=== PATIENT | male | born 1935 | race American Indian/Alaskan Native ===

== ENCOUNTER 2020-06-01 12:45 | Observation (INO) | payer MEDICARE ==
[2020-06-01] MEDS ORDERED: LACTATED RINGERS 1,000 ML IV SCH (13:00)
[2020-06-01] MEDS ORDERED: LACTATED RINGERS 1,000 ML ONE (13:15)
[2020-06-01] MEDS ORDERED: HYDROmorphone 1 MG/1 ML INJ IV PRN (13:25)
[2020-06-01] MEDS ORDERED: ONDANSETRON 4 MG/2 ML INJ IV PRN ×2 (13:25→17:00)
--- NOTE | 2020-06-01 13:26 | Anesthesia Day of Surgery ---
Anesthesia Day of Surgery - Day of Surgery Patient Examined: Yes Patient H&P Reviewed: Yes Patient is NPO: Yes
--- NOTE | 2020-06-01 13:27 | Anesthesia Consultation ---
Anesthesia Consult and Med Hx Date of service: 06/01/20 - Airway Anesthetic Teeth Evaluation: Poor (Missing) ROM Head & Neck: Adequate Mental/Hyoid Distance: Adequate Mallampati Class: Class II Intubation Access Assessment: Good - Pre-Operative Health Status ASA Pre-Surgery Classification: ASA2 Proposed Anesthetic Plan: General - Pulmonary Hx Smoking: Yes Hx Asthma: No Hx Respiratory Symptoms: No (Uses walker and says he can walk as far as he wants) COPD: No Hx Pneumonia: No Hx Sleep Apnea: No (ELIZA PRE SCREEN HIGH RISK.) - Cardiovascular System Hx Hypertension: Yes Hx Heart Attack/AMI: No Hx Pacemaker: No Hx Internal Defibrillator: No Hx Heart Murmur: No - Central Nervous System Hx Seizures: No CVA: Yes (TIAs 5 years ago) - Gastrointestinal Hx Gastroesophageal Reflux Disease: No - Endocrine Hx End Stage Renal Disease: No Hx Cirrhosis: No Hx Liver Disease: No - Hematic Hx Anemia: No Hx Sickle Cell Disease: No - Other Systems Hx Cancer: Yes Hx Obesity: Yes
[2020-06-01] MEDS ORDERED: ceFAZolin/STERILE WATER 2 GM/20 ML SYRINGE IV NR (14:27)
[2020-06-01] MEDS ORDERED: GLYCOPYRROLATE 0.4 MG/2 ML INJ ONE (14:47)
[2020-06-01] MEDS ORDERED: SUCCINYLCHOLINE CHLORIDE 200 MG/10 ML INJ MDV ONE (14:47)
[2020-06-01] MEDS ORDERED: dexAMETHasone 20 MG/5 ML VIAL ONE (14:47)
[2020-06-01] MEDS ORDERED: LIDOCAINE MPF (2%) 20 MG/1 ML VIAL 5 ML ONE (14:47)
[2020-06-01] MEDS ORDERED: ONDANSETRON 4 MG/2 ML INJ ONE (14:47)
[2020-06-01] MEDS ORDERED: propofoL 200 MG/20 ML VIAL IV ONE (14:48)
[2020-06-01] MEDS ORDERED: fentaNYL 100 MCG/2 ML INJ ONE (14:48)
--- NOTE | 2020-06-01 15:13 | Post Operative Note ---
Date of procedure: 06/01/20 Pre-op diagnosis: bladder cancer prev prostate Post-op diagnosis: same Findings: as above Anesthesia: GETA Surgeon: CHRISTIANO PRICE Estimated blood loss: 50-100ml Pathology: list (bladder) Specimen disposition: to lab Condition: stable Disposition: PACU
[2020-06-01] MEDS ORDERED: METHYLENE BLUE 50 MG/10 ML AMP ONE (15:24)
[2020-06-01] MEDS ORDERED: SODIUM CHLORIDE 0.9% IRRIG SOLN 2000 ML IR ONE (16:14)
[2020-06-01] MEDS ORDERED: SODIUM CHLORIDE 0.9% 1000 ML 1,000 ML ONE (16:23)
[2020-06-01] MEDS: HYDROmorphone 1 MG/1 ML INJ IV PRN ×2 (16:35→20:24)
--- NOTE | 2020-06-01 16:44 | Fluoroscopy Report ---
INTRAOPERATIVE FLUOROSCOPY: RETROGRADE UROGRAPHY INDICATION: BLADDER CANCER. TECHNIQUE: Intraoperative spot images were obtained during the procedure. FINDINGS: The opacified left renal collecting system and ureter are unremarkable as visualized. There is mild d ilatation of the distal third of the right ureter with filling defects along the proximal third of th e right ureter that likely represent air bubbles. The opacified right renal collecting system is unre markable. Please see the procedure report for further details. Fluoroscopy Time: 1.3 minutes. Fluoroscopy Images: 8. Signer Name: Ganesh Pretty MD Signed: 06/01/2020 4:40 PM Workstation Name: [id number]
[2020-06-01 16:56] LABS: Basophils % (Auto) 0.8 % (0.0-1.8); Eosinophils # (Auto) 0.1 K/mm3 (0.0-0.4); Eosinophils % (Auto) 2.5 % (0.0-4.3); Hematocrit 37.6 % (35.5-45.6); Hemoglobin 13.2 gm/dl (11.8-15.2); Lymphocytes # (Auto) 1.3 K/mm3 (1.2-5.4); Lymphocytes % (Auto) 24.1 % (13.4-35.0); Mean Corpuscular HGB Conc 35 % (32-34); Mean Corpuscular Volume 85 fl (84-94); Monocytes # (Auto) 0.2 K/mm3 (0.0-0.8); Monocytes % (Auto) 3.7 % (0.0-7.3); Platelet Count 283 K/mm3 (140-440); Red Blood Count 4.45 M/mm3 (3.65-5.03); Red Cell Distribution Width 14.9 % (13.2-15.2)
--- NOTE | 2020-06-01 16:59 | Operative Report ---
PREOPERATIVE DIAGNOSES: Large bladder tumor, history of prostate cancer, multiple comorbidities. POSTOPERATIVE DIAGNOSES: Large bladder tumor, history of prostate cancer, multiple comorbidities. PROCEDURE: Cystoscopy, resection of large bladder tumor and retrograde with right double-J stent. SURGEON: Shree Sellers M.D. ANESTHESIA: General. FINDINGS: This is a gentleman who was supposed to see me with hematuria about 8-9 months ago. Because of COVID, he never showed up. He started bleeding again recently. Cystoscopy showed a bladder tumor, which is large, right side of the bladder, now presents for treatment. DESCRIPTION OF PROCEDURE: The patient was brought to the operating room and placed on the operating room table. Following induction of anesthesia, placed in lithotomy position, prepped and draped in usual sterile fashion. Cystourethroscopy showed a tumor encompassing almost the entire right side of the bladder, right posterior wall. The orifice was visible. The tumor was resected down to capsular fibers deep into the muscle. It clearly looked invasive. There was no way to resect this entire tumor. We wanted to do palliative and stage this since he is just about 86 years old. At this point, once most of the tumor was removed, you could see that it is still rigid and it is deep. We did a retrograde, showed dilatation of the right side and very narrowing at the intramural ureter. With manipulation, we got a stent in and there was hydroureter and we were able to place a 6-Nauruan double J in the right ureter. The patient tolerated the procedure well and brought to recovery in stable condition. Final pathology pending. A 3-way catheter draining clear. JOB# [id number] IFEOMA/WIN
[2020-06-01] MEDS ORDERED: ACETAMINOPHEN 325 MG TAB PO PRN (17:00)
[2020-06-01] MEDS ORDERED: HYDROcodone/ACETAMINOPHEN 5-325 MG TAB PO PRN (17:00)
[2020-06-01] MEDS ORDERED: D5W/0.45% NACL/KCL 20 MEQ 20 MEQ/1,000 ML BAG IV SCH (17:00)
[2020-06-01 17:09] LABS: BUN/Creatinine Ratio 9; Blood Urea Nitrogen 11 mg/dL (9-20); Hemolysis Index 7
--- NOTE | 2020-06-01 17:40 | Post Anesthesia Evaluation ---
- Post Anesthesia Evaluation Patient Participated: Yes Airway Patent: Yes Stable Respiratory Function: Yes Nausea/Vomiting: No Temp > 96.8F: Yes Pain Manageable: Yes Adequeate Hydration: Yes Anesthesia Complications: No Block Receding Appropriately: Not Applicable Patient on Ventilator: No
--- NOTE | 2020-06-01 18:42 | Cat Scan Report ---
CT ABDOMEN AND PELVIS WITHOUT CONTRAST INDICATION / CLINICAL INFORMATION: Bladder cancer. TECHNIQUE: Axial CT images were obtained through the abdomen and pelvis without IV contrast. All CT scans at this location are performed using CT dose reduction for ALARA by means of automated exposure control. COMPARISON: None available. FINDINGS: LOWER CHEST: There is elevation of the left hemidiaphragm with airspace consolidation of the left low er lobe. There is right basilar atelectasis. LIVER: Hepatic steatosis. GALLBLADDER/BILIARY TREE: Unremarkable PANCREAS: Unremarkable SPLEEN: Unremarkable ADRENALS: Unremarkable KIDNEYS / URETER: Right ureteral stent extends from the right renal pelvis to the bladder. No residua l hydronephrosis. Left kidney and ureter are unremarkable. URINARY BLADDER: There is extensive, irregular wall thickening of the bladder, which is decompressed by Bird catheter. REPRODUCTIVE ORGANS: Unremarkable STOMACH / SMALL BOWEL: Stomach and small bowel are normal in caliber. No evidence of bowel inflammati on. COLON: The colon is unremarkable. LYMPH NODES: Bilateral pelvic sidewall lymph nodes, measuring 1.1 cm on the right (series 2 image 166 ) and 1.2 cm on the left (series 2 image 157). VASCULATURE: Moderate atherosclerotic calcification without acute abnormality. OTHER: No free air, free fluid, or focal fluid collection is identified. SKELETAL SYSTEM: Scattered degenerative changes of the spine. No acute or suspicious osseous findings . IMPRESSION: 1. Marked bladder wall irregularity, compatible with known bladder malignancy. Mildly enlarged bilate ral pelvic sidewall lymph nodes are suspicious for regional metastatic disease. 2. Right ureteral stent is present without significant residual hydronephrosis. 3. Elevated left hemidiaphragm with airspace consolidation of the left lower lobe, most likely reflec ting passive atelectasis. Recommend correlation to exclude pneumonia. 4. Other chronic, incidental findings as above. Signer Name: Jorge Tidwell MD Signed: 06/01/2020 6:37 PM Workstation Name: [id number]
[2020-06-01] MEDS: SODIUM CHLORIDE 0.9% IRRIG SOLN 2000 ML IR SCH ×2 (20:32→23:01)
[2020-06-01] MEDS ORDERED: ZOLPIDEM 5 MG TAB PO PRN (21:00)
[2020-06-01] MEDS: ceFAZolin/NS 1 GM/50 ML 1 GM/50 ML BAG IV SCH (23:01)
[2020-06-02] MEDS: SODIUM CHLORIDE 0.9% IRRIG SOLN 2000 ML IR SCH ×2 (00:56→08:26)
--- NOTE | 2020-06-02 05:31 | Consultation ---
History of Present Illness - Reason for Consult Consult date: 06/01/20 Medical management Requesting physician: CHRISTIANO PRICE - History of Present Illness 85-year-old s/p bladder tumor removal being admitted from PACU for 1 day observation. Post op patient doing well. Patient also has history of prostate cancer. No shortness of breath. No chest pain. No other complaints. Past History Past Medical History: cancer (Bladder and prostate) Past Surgical History: Other (Bladder surgery with tumor removal follow-up with some hematuria) Social history: lives with family, full code Family history: hypertension Medications and Allergies Allergies Allergy/AdvReac Type Severity Reaction Status Date / Time No Known Allergies Allergy Verified 05/30/20 12:11 Home Medications Medication Instructions Recorded Confirmed Last Taken Type Boost 1 bottle PO DAILY 05/30/20 05/30/20 Unknown History Sulfamethoxazole-Tmp Ds Tablet 1 tab PO Q12HR 05/30/20 06/01/20 06/01/20 09:00 History Active Meds: Active Medications Acetaminophen (Acetaminophen 325 Mg Tab) 650 mg PO Q4H PRN PRN Reason: Pain MILD(1-3)/Fever >100.5/FLORES Hydrocodone Bitart/Acetaminophen (Hydrocodone/Acetaminophen 5-325 Mg Tab) 2 each PO Q6H PRN PRN Reason: Pain, Moderate (4-6) Last Admin: 06/02/20 00:51 Dose: 2 each Documented by: Lactated Ringer's (Lactated Ringers) 1,000 mls @ 75 mls/hr IV DIRECT EDGAR Last Admin: 06/01/20 13:30 Dose: 75 mls/hr Documented by: Potassium Chloride/Dextrose/Sod Cl (D5w/0.45% Nacl/Kcl 20 Meq) 20 meq in 1,000 mls @ 100 mls/hr IV DIRECT EDGAR Last Admin: 06/01/20 20:25 Dose: 100 mls/hr Documented by: Cefazolin Sodium (Ancef/Ns 1 Gm/50 Ml) 1 gm in 50 mls @ 100 mls/hr IV Q8H EDGAR; Protocol Stop: 06/02/20 23:29 Last Admin: 06/01/20 23:01 Dose: 100 mls/hr Documented by: Ondansetron HCl (Ondansetron 4 Mg/2 Ml Inj) 4 mg IV Q8H PRN PRN Reason: Nausea And Vomiting Pantoprazole Sodium (Pantoprazole 40 Mg Inj) 40 mg IV QDAY EDGAR Sodium Chloride (Sodium Chloride 0.9% Irrig Soln 2000 Ml) 2,000 ml IR DIRECT EDGAR Last Admin: 06/02/20 00:56 Dose: 2,000 ml Documented by: Zolpidem Tartrate (Zolpidem 5 Mg Tab) 5 mg PO QHS PRN PRN Reason: Sleep Review of Systems All systems: negative Exam - Constitutional Vitals: Temp Pulse Resp BP Pulse Ox 97.3 F L 82 17 189/99 97 06/02/20 02:44 06/02/20 02:44 06/02/20 02:44 06/02/20 02:44 06/02/20 02:44 General appearance: Present: no acute distress, well-nourished - EENT Eyes: Present: PERRL ENT: hearing intact, clear oral mucosa - Neck Neck: Present: supple, normal ROM - Respiratory Respiratory effort: normal Respiratory: bilateral: CTA - Cardiovascular Heart rate: 78 Rhythm: regular Heart Sounds: Present: S1 & S2. Absent: rub, click - Extremities Extremities: pulses symmetrical, No edema Peripheral Pulses: within normal limits - Abdominal General gastrointestinal: Present: soft, non-tender, non-distended, normal bowel sounds Male genitourinary: Present: normal - Integumentary Integumentary: Present: clear, warm, dry - Musculoskeletal Musculoskeletal: gait normal, strength equal bilaterally - Psychiatric Psychiatric: appropriate mood/affect, intact judgment & insight - Neurologic Neurologic: CNII-XII intact, moves all extremities Results - Labs CBC & Chem 7: 06/01/20 16:52 06/01/20 16:52 Labs: Abnormal lab results 06/01/20 06/01/20 Range/Units 16:52 16:52 MCHC 35 H (32-34) % Sodium 135 L (137-145) mmol/L Glucose 118 H (75-100) mg/dL Assessment and Plan - Patient Problems (1) Bladder cancer Current Visit: Yes Status: Acute Qualifiers: Bladder location: anterior wall Qualified Code(s): 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
[2020-06-02] MEDS: ceFAZolin/NS 1 GM/50 ML 1 GM/50 ML BAG IV SCH (06:31)
[2020-06-02] MEDS ORDERED: hydrALAZINE 20 MG/1 ML INJ IV PRN (07:49)
--- NOTE | 2020-06-02 07:52 | Progress Note ---
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 I sent amlodipine prescription to his pharmacy. Advised to have the patient follow-up with his primary care physician, having surgery yesterday may contribute to increased increase blood pressure temporarily. Also advised the patient to check his blood pressure at home. History Interval history: Patient was seen and evaluated this morning Patient does not have any complaints His blood pressure is high Hospitalist Physical - Physical exam Narrative exam: Not in cardiopulmonary distress. The patient appeared well nourished and normally developed. Vital signs as documented. Head exam is unremarkable. No scleral icterus . Neck is without jugular venous distension, thyromegaly, or carotid bruits. Lungs are clear to auscultation. Cardiac exam reveals regular rate and Rhythm. Abdominal exam reveals normal bowel sounds, nontender, no organomegaly. Extremities are nonedematous and both femoral and pedal pulses are normal. BUSINESS SYSTEMS LEAD: Alert and oriented 3. No focal weakness. - Constitutional Vitals: Temp Pulse Resp BP Pulse Ox 97.3 F L 82 17 189/99 97 06/02/20 02:44 06/02/20 02:44 06/02/20 02:44 06/02/20 02:44 06/02/20 02:44 General appearance: Present: no acute distress, well-nourished Results - Labs CBC & Chem 7: 06/01/20 16:52 06/01/20 16:52 Labs: Laboratory Last Values WBC 5.4 K/mm3 (4.5-11.0) 06/01/20 16:52 RBC 4.45 M/mm3 (3.65-5.03) 06/01/20 16:52 Hgb 13.2 gm/dl (11.8-15.2) 06/01/20 16:52 Hct 37.6 % (35.5-45.6) 06/01/20 16:52 MCV 85 fl (84-94) 06/01/20 16:52 MCH 30 pg (28-32) 06/01/20 16:52 MCHC 35 % (32-34) H 06/01/20 16:52 RDW 14.9 % (13.2-15.2) 06/01/20 16:52 Plt Count 283 K/mm3 (140-440) 06/01/20 16:52 Lymph % (Auto) 24.1 % (13.4-35.0) 06/01/20 16:52 Coffey % (Auto) 3.7 % (0.0-7.3) 06/01/20 16:52 Eos % (Auto) 2.5 % (0.0-4.3) 06/01/20 16:52 Baso % (Auto) 0.8 % (0.0-1.8) 06/01/20 16:52 Lymph # (Auto) 1.3 K/mm3 (1.2-5.4) 06/01/20 16:52 Coffey # (Auto) 0.2 K/mm3 (0.0-0.8) 06/01/20 16:52 Eos # (Auto) 0.1 K/mm3 (0.0-0.4) 06/01/20 16:52 Baso # (Auto) 0.0 K/mm3 (0.0-0.1) 06/01/20 16:52 Seg Neutrophils % 68.9 % (40.0-70.0) 06/01/20 16:52 Seg Neutrophils # 3.7 K/mm3 (1.8-7.7) 06/01/20 16:52 Sodium 135 mmol/L (137-145) L 06/01/20 16:52 Potassium 4.4 mmol/L (3.6-5.0) 06/01/20 16:52 Chloride 102.7 mmol/L (98-107) 06/01/20 16:52 Carbon Dioxide 27 mmol/L (22-30) 06/01/20 16:52 Anion Gap 10 mmol/L 06/01/20 16:52 BUN 11 mg/dL (9-20) 06/01/20 16:52 Creatinine 1.2 mg/dL (0.8-1.3) 06/01/20 16:52 Estimated GFR > 60 ml/min 06/01/20 16:52 BUN/Creatinine Ratio 9 % 06/01/20 16:52 Glucose 118 mg/dL (75-100) H 06/01/20 16:52 Calcium 9.0 mg/dL (8.4-10.2) 06/01/20 16:52 Coronavirus (PCR) Negative (Negative) 05/31/20 Unknown Bird/IV: Voiding Method Indwelling Catheter Active Medications - Current Medications Current Medications: Generic Name Dose Route Start Last Admin Trade Name Freq PRN Reason Stop Dose Admin Acetaminophen 650 mg 06/01/20 17:00 Acetaminophen 325 Mg Tab PO Q4H PRN Pain MILD(1-3)/Fever >100.5/FLORES Hydrocodone Bitart/Acetaminophen 2 each 06/01/20 17:00 06/02/20 00:51 Hydrocodone/Acetaminophen 5-325 Mg Tab PO 2 each Q6H PRN Administration Pain, Moderate (4-6) Lactated Ringer's 1,000 mls @ 75 mls/hr 06/01/20 13:00 06/01/20 13:30 Lactated Ringers IV 75 mls/hr DIRECT EDGAR Administration Potassium Chloride/Dextrose/Sod Cl 20 meq in 1,000 mls @ 100 mls/hr 06/01/20 17:00 06/01/20 20:25 D5w/0.45% Nacl/Kcl 20 Meq IV 100 mls/hr DIRECT EDGAR Administration Cefazolin Sodium 1 gm in 50 mls @ 100 mls/hr 06/01/20 23:00 06/02/20 06:31 Ancef/Ns 1 Gm/50 Ml IV 06/02/20 23:29 100 mls/hr Q8H EDGAR Administration Protocol Ondansetron HCl 4 mg 06/01/20 17:00 Ondansetron 4 Mg/2 Ml Inj IV Q8H PRN Nausea And Vomiting Pantoprazole Sodium 40 mg 06/02/20 08:00 06/02/20 06:38 Pantoprazole 40 Mg Inj IV 40 mg QDAY EDGAR Administration Sodium Chloride 2,000 ml 06/01/20 17:00 06/02/20 00:56 Sodium Chloride 0.9% Irrig Soln 2000 Ml IR 2,000 ml DIRECT EDGAR Administration Zolpidem Tartrate 5 mg 06/01/20 21:00 Zolpidem 5 Mg Tab PO QHS PRN Sleep
[2020-06-02] MEDS ORDERED: PANTOPRAZOLE 40 MG INJ IV SCH (08:00)
[2020-06-02] MEDS ORDERED: amLODIPine 10 MG TAB PO SCH (08:00)
[2020-06-02 08:51] VITALS: BP 170/86
--- NOTE | 2020-06-02 09:01 | Discharge Summary ---
Short Stay Discharge Plan Activity: other Weight Bearing Status: Partial Weight Bearing Diet: regular, low fat, low cholesterol, low salt Special Instructions: other (teach campo care ) Follow up with: PRIMARY CARE, [Primary Care Provider] - 7 Days CHRISTIANO PRICE MD [Staff Physician] - 7 Days
--- NOTE | 2020-06-02 09:04 | Progress Note ---
Assessment and Plan edema decreased looksbetter campo out pt insisted Subjective Date of service: 06/02/20 Principal diagnosis: hematuria Objective - Constitutional Vitals: Vital Signs - 12hr 06/01/20 06/02/20 06/02/20 23:15 02:44 08:06 Temperature 97.3 F L 98.4 F Pulse Rate 82 85 Respiratory 17 18 Rate Blood Pressure 170/86 Blood Pressure 189/99 [Right] O2 Sat by Pulse 95 97 100 Oximetry General appearance: Present: no acute distress - Respiratory Respiratory effort: normal Extremities: No edema - Gastrointestinal General gastrointestinal: Present: non-tender - Genitourinary Male genitourinary: penile edema - Labs CBC & Chem 7: 06/01/20 16:52 06/01/20 16:52 Labs: Abnormal lab results 06/01/20 06/01/20 Range/Units 16:52 16:52 MCHC 35 H (32-34) % Sodium 135 L (137-145) mmol/L Glucose 118 H (75-100) mg/dL Medications & Allergies - Medications Allergies/Adverse Reactions: Allergies No Known Allergies Allergy (Verified 05/30/20 12:11) Home Medications: Home Medications Medication Instructions Recorded Confirmed Last Taken Type Boost 1 bottle PO DAILY 05/30/20 05/30/20 Unknown History Sulfamethoxazole-Tmp Ds Tablet 1 tab PO Q12HR 05/30/20 06/01/20 06/01/20 09:00 History Active Medications: Generic Name Dose Route Start Last Admin Trade Name Freq PRN Reason Stop Dose Admin Acetaminophen 650 mg 06/01/20 17:00 Acetaminophen 325 Mg Tab PO Q4H PRN Pain MILD(1-3)/Fever >100.5/FLORES Hydrocodone Bitart/Acetaminophen 2 each 06/01/20 17:00 06/02/20 00:51 Hydrocodone/Acetaminophen 5-325 Mg Tab PO 2 each Q6H PRN Administration Pain, Moderate (4-6) Amlodipine Besylate 10 mg 06/02/20 08:00 Amlodipine 10 Mg Tab PO QDAY EDGAR Hydralazine HCl 10 mg 06/02/20 07:49 Hydralazine 20 Mg/1 Ml Inj IV Q4HR PRN Hypertension Lactated Ringer's 1,000 mls @ 75 mls/hr 06/01/20 13:00 06/01/20 13:30 Lactated Ringers IV 75 mls/hr DIRECT EDGAR Administration Potassium Chloride/Dextrose/Sod Cl 20 meq in 1,000 mls @ 100 mls/hr 06/01/20 17:00 06/01/20 20:25 D5w/0.45% Nacl/Kcl 20 Meq IV 100 mls/hr DIRECT EDGAR Administration Cefazolin Sodium 1 gm in 50 mls @ 100 mls/hr 06/01/20 23:00 06/02/20 06:31 Ancef/Ns 1 Gm/50 Ml IV 06/02/20 23:29 100 mls/hr Q8H EDGAR Administration Protocol Ondansetron HCl 4 mg 06/01/20 17:00 Ondansetron 4 Mg/2 Ml Inj IV Q8H PRN Nausea And Vomiting Pantoprazole Sodium 40 mg 06/02/20 08:00 06/02/20 06:38 Pantoprazole 40 Mg Inj IV 40 mg QDAY EDGAR Administration Sodium Chloride 2,000 ml 06/01/20 17:00 06/02/20 08:26 Sodium Chloride 0.9% Irrig Soln 2000 Ml IR 2,000 ml DIRECT EDGAR Administration Zolpidem Tartrate 5 mg 06/01/20 21:00 Zolpidem 5 Mg Tab PO QHS PRN Sleep
--- NOTE | 2020-06-02 09:11 | Progress Note ---
Assessment and Plan keep jahaira last edit was wrong pt home with jahaira Subjective Date of service: 06/02/20 Principal diagnosis: hematuria Objective - Constitutional Vitals: Vital Signs - 12hr 06/01/20 06/02/20 06/02/20 23:15 02:44 08:06 Temperature 97.3 F L 98.4 F Pulse Rate 82 85 Respiratory 17 18 Rate Blood Pressure 170/86 Blood Pressure 189/99 [Right] O2 Sat by Pulse 95 97 100 Oximetry General appearance: Present: no acute distress - Labs CBC & Chem 7: 06/01/20 16:52 06/01/20 16:52 Labs: Abnormal lab results 06/01/20 06/01/20 Range/Units 16:52 16:52 MCHC 35 H (32-34) % Sodium 135 L (137-145) mmol/L Glucose 118 H (75-100) mg/dL Medications & Allergies - Medications Allergies/Adverse Reactions: Allergies No Known Allergies Allergy (Verified 05/30/20 12:11) Home Medications: Home Medications Medication Instructions Recorded Confirmed Last Taken Type Boost 1 bottle PO DAILY 05/30/20 05/30/20 Unknown History Sulfamethoxazole-Tmp Ds Tablet 1 tab PO Q12HR 05/30/20 06/01/20 06/01/20 09:00 History Active Medications: Generic Name Dose Route Start Last Admin Trade Name Freq PRN Reason Stop Dose Admin Acetaminophen 650 mg 06/01/20 17:00 Acetaminophen 325 Mg Tab PO Q4H PRN Pain MILD(1-3)/Fever >100.5/FLORES Hydrocodone Bitart/Acetaminophen 2 each 06/01/20 17:00 06/02/20 00:51 Hydrocodone/Acetaminophen 5-325 Mg Tab PO 2 each Q6H PRN Administration Pain, Moderate (4-6) Amlodipine Besylate 10 mg 06/02/20 08:00 Amlodipine 10 Mg Tab PO QDAY EDGAR Hydralazine HCl 10 mg 06/02/20 07:49 Hydralazine 20 Mg/1 Ml Inj IV Q4HR PRN Hypertension Lactated Ringer's 1,000 mls @ 75 mls/hr 06/01/20 13:00 06/01/20 13:30 Lactated Ringers IV 75 mls/hr DIRECT EDGAR Administration Potassium Chloride/Dextrose/Sod Cl 20 meq in 1,000 mls @ 100 mls/hr 06/01/20 17:00 06/01/20 20:25 D5w/0.45% Nacl/Kcl 20 Meq IV 100 mls/hr DIRECT EDGAR Administration Cefazolin Sodium 1 gm in 50 mls @ 100 mls/hr 06/01/20 23:00 06/02/20 06:31 Ancef/Ns 1 Gm/50 Ml IV 06/02/20 23:29 100 mls/hr Q8H EDGAR Administration Protocol Ondansetron HCl 4 mg 06/01/20 17:00 Ondansetron 4 Mg/2 Ml Inj IV Q8H PRN Nausea And Vomiting Pantoprazole Sodium 40 mg 06/02/20 08:00 06/02/20 06:38 Pantoprazole 40 Mg Inj IV 40 mg QDAY EDGAR Administration Sodium Chloride 2,000 ml 06/01/20 17:00 06/02/20 08:26 Sodium Chloride 0.9% Irrig Soln 2000 Ml IR 2,000 ml DIRECT EDGAR Administration Zolpidem Tartrate 5 mg 06/01/20 21:00 Zolpidem 5 Mg Tab PO QHS PRN Sleep
[2020-06-03] MEDS ORDERED: PANTOPRAZOLE 40 MG TAB PO SCH (07:30)
== END 2020-06-02 11:30 | disposition home or self-care (01) ==
LOC: OR 12:45 → 3A 16:17 → 3B 17:57
PROVIDERS: ADMIT Urology; ATTEND Urology
DX: C61 Malignant neoplasm of prostate (principal); Z20.822 Contact with and (suspected) exposure to COVID-19; C67.3 Malignant neoplasm of anterior wall of bladder; E87.1 Hypo-osmolality and hyponatremia; I10 Essential (primary) hypertension
CPT/HCPCS: 36415; 52235; 52332; 74176; 74420; 80048; 85025; 88307; 93005; 96361; 96365; 96366; 96375; 96376; A4217; C2617; C9113; G0378; J0330; J0690; J1100; J1170; J2405; J2704; J3010; J7030; J7120; Q9967; Q9968; U0003

== ENCOUNTER 2021-02-01 12:44 | Day surgery (SDC) | payer MEDICARE ==
[~2021-02-01 12:44] MED LIST: LACTATED RINGERS 1,000 ML IV SCH; WATER FOR IRRIG STERILE 1,500 ML BOTTLE IR ONE; WATER FOR IRRIG STERILE 2000 ML IR ONE
[2021-02-01] MEDS ORDERED: ceFAZolin/STERILE WATER 2 GM/20 ML SYRINGE IV NR (14:00)
[2021-02-01] MEDS ORDERED: ONDANSETRON 4 MG/2 ML INJ IV PRN (14:01)
[2021-02-01] MEDS ORDERED: HYDROmorphone 1 MG/1 ML INJ IV PRN (14:01)
[2021-02-01] MEDS ORDERED: HYDROcodone/ACETAMINOPHEN 5-325 MG TAB PO PRN (14:01)
--- NOTE | 2021-02-01 14:04 | Anesthesia Consultation ---
Anesthesia Consult and Med Hx Date of service: 02/01/21 - Airway Anesthetic Teeth Evaluation: Good ROM Head & Neck: Adequate Mental/Hyoid Distance: Adequate Mallampati Class: Class II Intubation Access Assessment: Probably Good - Pulmonary Exam CTA: Yes - Cardiac Exam Cardiac Exam: RRR - Pre-Operative Health Status ASA Pre-Surgery Classification: ASA3 Proposed Anesthetic Plan: General - Pulmonary Hx Smoking: Yes (quit many yrs ago) Hx Respiratory Symptoms: No (occasional cough) Hx Sleep Apnea: No (ELIZA PRE SCREEN HIGH RISK.) - Cardiovascular System Hx Hypertension: Yes Hx Heart Attack/AMI: No Hx Percutaneous Transluminal Coronary Angioplasty (PTCA): No - Central Nervous System CVA: Yes (TIA 4-5yrs ago) - Endocrine Hx Renal Disease: No Hx Liver Disease: No Hx Insulin Dependent Diabetes: No Hx Non-Insulin Dependent Diabetes: No Hx Thyroid Disease: No - Other Systems Hx Obesity: Yes (BMI 33) - Additional Comments Anesthesia Medical History Comments: No hx anesthetic complications. SpO2 low 90s but improved with cough and deep inspiration. Patient reports occasional cough without associated symptoms. Reports negative rapid home COVID test. Will give preop albuterol neb.
[2021-02-01] MEDS ORDERED: ALBUTEROL 2.5 MG/3 ML NEBU IH ONE (14:05)
--- NOTE | 2021-02-01 14:05 | Anesthesia Day of Surgery ---
Anesthesia Day of Surgery - Day of Surgery Patient Examined: Yes Patient H&P Reviewed: Yes Patient is NPO: Yes
[2021-02-01] MEDS ORDERED: ALBUTEROL 2.5 MG/3 ML NEBU IH PRN (14:30)
[2021-02-01] MEDS ORDERED: fentaNYL 100 MCG/2 ML INJ ONE (15:04)
[2021-02-01] MEDS ORDERED: LIDOCAINE MPF (2%) 20 MG/1 ML VIAL 5 ML ONE (15:04)
[2021-02-01] MEDS ORDERED: propofoL 200 MG/20 ML VIAL IV ONE (15:04)
[2021-02-01] MEDS ORDERED: ePHEDrine SULFATE 50 MG/1 ML INJ ONE (15:22)
[2021-02-01] MEDS ORDERED: WATER FOR IRRIG STERILE 2000 ML IR ONE (15:39)
[2021-02-01] MEDS ORDERED: WATER FOR IRRIG STERILE 1,500 ML BOTTLE IR ONE (15:39)
--- NOTE | 2021-02-01 16:03 | Post Operative Note ---
Date of procedure: 02/01/21 Pre-op diagnosis: bladder cancer Post-op diagnosis: same Findings: old stent Procedure: cysto tur old site bx Anesthesia: GETA Surgeon: CHRISTIANO PRICE Estimated blood loss: none Pathology: list (bladder) Specimen disposition: to lab Condition: stable Disposition: PACU
--- NOTE | 2021-02-01 16:05 | Discharge Summary ---
Short Stay Discharge Plan Activity: other (no straining ) Weight Bearing Status: Full Weight Bearing Diet: low fat, low cholesterol, low salt, diabetic Special Instructions: other (inc fluids ) Durable Medical Equipment Needed Upon Discharge: other (teach cath care ) Follow up with: PRIMARY CARE, [Primary Care Provider] - 7 Days CHRISTIANO PRICE MD [Staff Physician] - 02/06/21
[2021-02-01] MEDS ORDERED: ONDANSETRON 4 MG/2 ML INJ ONE (16:08)
--- NOTE | 2021-02-01 16:32 | XRay Report ---
INTRAOPERATIVE FLUOROSCOPY: INDICATION / CLINICAL INFORMATION: CYSTO TURP. TECHNIQUE: Intraoperative spot images were obtained during the procedure. FINDINGS: Intraoperative spot images were obtained. The initial image shows a double-J ureteral stent on the ri ght. Subsequent images show the stent has been removed. Fluoroscopy Time: 10 seconds. Fluoroscopy Images: 4. Signer Name: Nba Best MD Signed: 02/01/2021 4:28 PM Workstation Name: [id number]
--- NOTE | 2021-02-01 16:49 | Operative Report ---
DATE OF SURGERY: 02/01/2021 PREOPERATIVE DIAGNOSES: History of invasive bladder cancer, second stage resection, restaging, previous stent placement. POSTOPERATIVE DIAGNOSES: History of invasive bladder cancer, second stage resection, restaging, previous stent placement. PROCEDURES: Cystoscopy, stent exchange over a wire, resection of surrounding tumor site and biopsy of bladder neck. SURGEON: Shree Sellers MD ANESTHESIA: General. FINDINGS: This is a gentleman with a wide open bladder neck with a small papule at the bladder neck and lots of edema around the old tumor site. The stent was withdrawn over a wire and the old tumor site was resected down to muscle. Small biopsy of bladder neck was obtained too. The patient tolerated the procedure well. No significant bleeding. This was done with the 24 resectoscope without difficulty. A 22-Coude was placed, it was clear. Brought to recovery in stable condition. Plan will be followup, check pathology, restaging. Stent was not replaced. It was wide open the orifice and we just removed the wire. TID: [id number] RECEIPT: [id number] IFEOMA/JENNIFER/ELSIE
--- NOTE | 2021-02-01 17:26 | Post Anesthesia Evaluation ---
- Post Anesthesia Evaluation Patient Participated: Yes Airway Patent: Yes Stable Respiratory Function: Yes Nausea/Vomiting: No Temp > 96.8F: Yes Pain Manageable: Yes Adequeate Hydration: Yes Anesthesia Complications: No
[2021-02-01 17:44] VITALS: BP 138/83
== END 2021-02-01 17:30 | disposition home or self-care (01) ==
LOC: OR 12:44
PROVIDERS: ATTEND Urology
DX: C67.9 Malignant neoplasm of bladder, unspecified (principal); I10 Essential (primary) hypertension; E66.9 Obesity, unspecified; Z68.33 Body mass index [BMI] 33.0-33.9, adult; Z86.73 Personal history of transient ischemic attack (TIA), and cerebral infarction without residual deficits; Z87.891 Personal history of nicotine dependence; Z79.899 Other long term (current) drug therapy; Z88.8 Allergy status to other drugs, medicaments and biological substances; Z98.890 Other specified postprocedural states
CPT/HCPCS: 52234; 52332; 74018; 88112; 88305; A4217; J0690; J2405; J2704; J3010; J7120

== ENCOUNTER 2021-07-12 10:10 | Day surgery (SDC) | payer MEDICARE ==
[2021-07-12] MEDS ORDERED: LACTATED RINGERS 1,000 ML IV SCH (10:30)
[2021-07-12] MEDS ORDERED: LACTATED RINGERS 1,000 ML ONE (10:43)
--- NOTE | 2021-07-12 11:28 | Anesthesia Consultation ---
Anesthesia Consult and Med Hx Date of service: 07/12/21 - Airway Anesthetic Teeth Evaluation: Poor, Chipped ROM Head & Neck: Adequate Mental/Hyoid Distance: Adequate Mallampati Class: Class III Intubation Access Assessment: Possibly Difficult - Pulmonary Exam CTA: Yes - Cardiac Exam Cardiac Exam: RRR - Pre-Operative Health Status ASA Pre-Surgery Classification: ASA3 Proposed Anesthetic Plan: General (No GAC. No FHAC.) - Pulmonary Hx Smoking: Yes (STOPPED 2000) Hx Respiratory Symptoms: No (occasional cough) Hx Sleep Apnea: No (ELIZA PRE SCREEN HIGH RISK.) - Cardiovascular System Hx Hypertension: Yes (ON MEDS X 1 MONTH) - Central Nervous System Hx Seizures: No Hx Back Pain: Yes Hx Psychiatric Problems: No - Gastrointestinal Hx Gastroesophageal Reflux Disease: No - Endocrine Hx Insulin Dependent Diabetes: No Hx Non-Insulin Dependent Diabetes: No Hx Thyroid Disease: No - Hematic Hx Anemia: No - Other Systems Hx Alcohol Use: No Hx Substance Use: No Hx Cancer: Yes - Additional Comments Anesthesia Medical History Comments: No GAC. No FHAC.
--- NOTE | 2021-07-12 11:29 | Anesthesia Day of Surgery ---
Anesthesia Day of Surgery - Day of Surgery Patient Examined: Yes Patient H&P Reviewed: Yes Patient is NPO: Yes Vin's Test: N/A
[2021-07-12] MEDS ORDERED: dexAMETHasone 20 MG/5 ML VIAL ONE (11:33)
[2021-07-12] MEDS ORDERED: ONDANSETRON 4 MG/2 ML INJ ONE (11:33)
[2021-07-12] MEDS ORDERED: fentaNYL 100 MCG/2 ML INJ ONE ×2 (11:34→13:23)
[2021-07-12] MEDS ORDERED: propofoL 200 MG/20 ML VIAL IV ONE (11:34)
[2021-07-12] MEDS ORDERED: ePHEDrine SULFATE 50 MG/1 ML INJ ONE (11:34)
[2021-07-12] MEDS ORDERED: ceFAZolin/Water 2 GM/20 ML 2 GM/20 ML SYRINGE IV ONE (12:03)
[2021-07-12] MEDS ORDERED: ceFAZolin/STERILE WATER 2 GM/20 ML SYRINGE IV NR (13:00)
[2021-07-12] MEDS ORDERED: WATER FOR IRRIG STERILE 2000 ML IR ONE (13:15)
--- NOTE | 2021-07-12 13:36 | Post Operative Note ---
Date of procedure: 07/12/21 Pre-op diagnosis: bladder cancer Post-op diagnosis: same Findings: tumor r lat wall Procedure: cysto trubt lt rpg Anesthesia: GETA Surgeon: CHRISTIANO PRICE Pathology: list (bladder) Specimen disposition: to lab Condition: stable Disposition: PACU
--- NOTE | 2021-07-12 13:39 | Discharge Summary ---
Short Stay Discharge Plan Activity: other (no straining ) Weight Bearing Status: Full Weight Bearing Diet: low fat, low cholesterol, low salt Special Instructions: other (inc fluids ) Follow up with: PRIMARY CARE, [Primary Care Provider] - 7 Days CHRISTIANO PRICE MD [Staff Physician] - 7 Days
[2021-07-12] MEDS ORDERED: FUROSEMIDE 20 MG/2 ML INJ IV PRN (13:47)
[2021-07-12] MEDS ORDERED: MEPERIDINE 25 MG/1 ML INJ IV PRN (13:52)
[2021-07-12] MEDS ORDERED: HYDROmorphone 1 MG/1 ML INJ IV PRN (13:52)
[2021-07-12] MEDS ORDERED: ONDANSETRON 4 MG/2 ML INJ IV PRN (13:52)
[2021-07-12] MEDS ORDERED: NALOXONE 0.4 MG/1 ML INJ IV PRN (13:52)
--- NOTE | 2021-07-12 13:53 | Post Anesthesia Evaluation ---
- Post Anesthesia Evaluation Patient Participated: Yes Airway Patent: Yes Stable Respiratory Function: Yes Nausea/Vomiting: Yes Temp > 96.8F: Yes Pain Manageable: Yes Adequeate Hydration: Yes Anesthesia Complications: No
[2021-07-12] MEDS: HYDROmorphone 1 MG/1 ML INJ IV PRN ×4 (14:17→14:50)
--- NOTE | 2021-07-12 15:05 | Fluoroscopy Report ---
3 fluoroscopic images submitted Indication: Intraoperative localization Impression: 3 images of the abdomen were submitted for documentation purposes with radiology involve ment. Left-sided retrograde pyelogram was performed using 6 mL of Omnipaque 300 Please refer to the operative note for complete details. Fluoroscopic time: 14 seconds Signer Name: Ralph Bauman MD Signed: 07/12/2021 3:01 PM Workstation Name: [id number]
--- NOTE | 2021-07-12 15:07 | Operative Report ---
DATE OF SURGERY: 07/12/2021 FINDINGS: This is a gentleman with history of bladder cancer, high grade, invasive. He has a history of also prostate cancer, who has been on hormonal treatment. He refused radical surgery. He started Keytruda by Dr. Pulido. Followup cystoscopy at 4 or 5 months ago showed severe edema and inflammation. It was amazing. He had intermittent hematuria and he now presents for followup cystoscopy. DESCRIPTION OF PROCEDURE: The patient was brought to the operating room and placed on the operating table. Following induction of anesthesia, placed in the lithotomy position, prepped and draped in usual sterile fashion. Cystourethroscopy showed a wide open bladder neck. Left orifice was well visualized with J hooking. Right showed severe edema and was not disturbed. There was a tumor on the right lateral wall, which was somewhat necrotic, which was resected once again. Hopefully, this is inflammation, but it looks more like bladder cancer. A little bit of apical prostate tissue was also resected. The patient tolerated the procedure well. There was minimal blood tinge. We used the ball electrode to get hemostasis. There were no complications. Minimal blood loss. A 22 Bird was placed, brought to recovery in stable condition. TID: [id number] RECEIPT: [id number] IFEOMA/DEX/SONNY
[2021-07-12 16:34] VITALS: BP 169/96
== END 2021-07-12 16:20 | disposition home or self-care (01) ==
LOC: OR 10:10
PROVIDERS: ATTEND Urology
DX: C67.2 Malignant neoplasm of lateral wall of bladder (principal); N02.9 Recurrent and persistent hematuria with unspecified morphologic changes; C61 Malignant neoplasm of prostate; E78.00 Pure hypercholesterolemia, unspecified; I10 Essential (primary) hypertension; K21.9 Gastro-esophageal reflux disease without esophagitis; M19.90 Unspecified osteoarthritis, unspecified site; Z85.89 Personal history of malignant neoplasm of other organs and systems; Z98.890 Other specified postprocedural states; Z79.899 Other long term (current) drug therapy; Z98.49 Cataract extraction status, unspecified eye; Z87.440 Personal history of urinary (tract) infections; Z86.73 Personal history of transient ischemic attack (TIA), and cerebral infarction without residual deficits
CPT/HCPCS: 36415; 52234; 52601; 74420; 84132; 88112; 88305; 88341; 88342; C1758; J0690; J1100; J1170; J1940; J2405; J2704; J3010; J3490; J7120; Q9967

== ENCOUNTER 2021-07-14 11:56 | Emergency (ER) | payer MEDICARE ==
[2021-07-14 12:16] VITALS: BP 206/121
--- NOTE | 2021-07-14 18:10 | Emergency Department Report ---
ED Male HPI - General Chief complaint: Urogenital-Male Stated complaint: CATHETER PROBLEMS SWOLLEN Time Seen by Provider: 07/14/21 15:58 Source: patient Mode of arrival: Ambulatory Limitations: Physical Limitation - History of Present Illness -: Gradual Radiation: none Severity: mild Quality: dull Consistency: constant Improves with: none - Related Data Home Medications Medication Instructions Recorded Confirmed Last Taken Cosopt Eye Drops 1 drop OD BID 01/18/21 07/03/21 01/31/21 Durezol 1 drop OD BID 01/18/21 07/03/21 02/01/21 08:15 Hydrochlorothiazide 12.5 mg PO DAILY 01/18/21 07/03/21 01/31/21 Zioptan 0.0015% Eye Drops 1 drop OD HS 01/18/21 07/03/21 01/31/21 Zirgan 1 drop OD TID 01/18/21 07/03/21 01/31/21 Cod Liver Oil 07/12/21 07/11/21 Tylenol Pm Ex-Strength Caplet 07/12/21 07/11/21 Vitamin D (Nf) 07/12/21 07/11/21 carvediloL [Coreg] BID 07/12/21 07/11/21 hydroCHLOROthiazide [HCTZ] DAILY 07/12/21 07/11/21 Allergies Allergy/AdvReac Type Severity Reaction Status Date / Time LATANOPROST-EYE DROPS AdvReac Intermediate Itching Uncoded 07/14/21 12:08 ED Review of Systems ROS: Stated complaint: CATHETER PROBLEMS SWOLLEN Other details as noted in HPI Comment: All other systems reviewed and negative ED Past Medical Hx - Past Medical History Hx Hypertension: Yes (ON MEDS X 1 MONTH) Hx GERD: Yes Hx Arthritis: Yes (KNEES,BACK,ALL OVER) Hx Seizures: No Hx HIV: No Additional medical history: PROSTRATE PROBLEMS - Social History Smoking Status: Former Smoker - Medications Home Medications: Home Medications Medication Instructions Recorded Confirmed Last Taken Type Cosopt Eye Drops 1 drop OD BID 01/18/21 07/03/21 01/31/21 History Durezol 1 drop OD BID 01/18/21 07/03/21 02/01/21 08:15 History Hydrochlorothiazide 12.5 mg PO DAILY 01/18/21 07/03/21 01/31/21 History Zioptan 0.0015% Eye Drops 1 drop OD HS 01/18/21 07/03/21 01/31/21 History Zirgan 1 drop OD TID 01/18/21 07/03/21 01/31/21 History Cod Liver Oil 07/12/21 07/11/21 History Tylenol Pm Ex-Strength Caplet 07/12/21 07/11/21 History Vitamin D (Nf) 07/12/21 07/11/21 History carvediloL [Coreg] BID 07/12/21 07/11/21 History hydroCHLOROthiazide [HCTZ] DAILY 07/12/21 07/11/21 History ED Physical Exam - General Limitations: Physical Limitation General appearance: alert, in no apparent distress - Head Head exam: Present: atraumatic, normocephalic - Eye Eye exam: Present: normal appearance, PERRL, EOMI Pupils: Present: normal accommodation - ENT ENT exam: Present: normal exam, normal orophraynx, mucous membranes moist, TM's normal bilaterally - Neck Neck exam: Present: normal inspection, full ROM - Respiratory Respiratory exam: Present: normal lung sounds bilaterally. Absent: respiratory distress, rales, rhonchi - Cardiovascular Cardiovascular Exam: Present: regular rate, normal rhythm. Absent: systolic murmur, diastolic murmur, rubs, gallop - GI/Abdominal GI/Abdominal exam: Present: soft, normal bowel sounds - Rectal Rectal exam: Present: deferred - Extremities Exam Extremities exam: Present: normal inspection - Back Exam Back exam: Present: normal inspection - Neurological Exam Neurological exam: Present: alert, oriented X3 - Psychiatric Psychiatric exam: Present: normal affect, normal mood - Skin Skin exam: Present: warm, dry, intact, normal color. Absent: rash ED Course Vital Signs 07/14/21 12:14 Temperature 98.6 F Pulse Rate 66 Respiratory 20 Rate Blood Pressure 206/121 O2 Sat by Pulse 95 Oximetry Critical care attestation.: If time is entered above; I have spent that time in minutes in the direct care of this critically ill patient, excluding procedure time. ED Disposition Clinical Impression: Bird catheter problem Disposition: HOME / SELF CARE / HOMELESS Is pt being admited?: No Does the pt Need Aspirin: No Condition: Stable Instructions: Indwelling Urinary Catheter Care, Adult Additional Instructions: 86-year-old male with status post Bird catheter insertion by urology status post a urological procedure who reports that he has been urinating around the Bird since the insertion and had notified the nurse at the location of the procedure and feels his concerns were dismissed. He follow-up at the urology office yesterday with similar concerns he was advised that nothing could be done about the of the Bird catheter although he can be reevaluated for continuation or continued discontinuance of the Bird catheter. some apparent issues due to the doctor was in charge of the Brid not being in the office at the present time so he came to the emergency department today seeking Bird catheter removal. Due to him urinating around the Bird and having some obvious swelling and pain around the area of his genitals the Bird catheter was removed been advised to follow-up with his urology Also he has been advised return to emerge department should he experience some urinary deficiency Referrals: PRIMARY CARE, [Primary Care Provider] - 3-5 Days (Follow-up with your urologist no primary today of the Bird catheter removal)
== END 2021-07-14 19:12 | disposition home or self-care (01) ==
LOC: ED 11:56
DX: T83.9XXA Unspecified complication of genitourinary prosthetic device, implant and graft, initial encounter (principal); Z87.891 Personal history of nicotine dependence; I10 Essential (primary) hypertension
CPT/HCPCS: 99282

== ENCOUNTER 2021-09-28 08:01 | Observation (INO) | payer MEDICARE ==
[2021-09-28] MEDS ORDERED: LACTATED RINGERS 1,000 ML IV SCH (09:00)
--- NOTE | 2021-09-28 09:23 | Anesthesia Consultation ---
Anesthesia Consult and Med Hx Date of service: 09/28/21 - Airway Anesthetic Teeth Evaluation: Poor (multiple missing teeth, denies loose teeth) ROM Head & Neck: Adequate Mental/Hyoid Distance: Adequate Mallampati Class: Class III Intubation Access Assessment: Possibly Difficult (previous LMA 4) - Pulmonary Exam CTA: Yes - Cardiac Exam Cardiac Exam: RRR - Pre-Operative Health Status ASA Pre-Surgery Classification: ASA3 Proposed Anesthetic Plan: General - Pulmonary Hx Smoking: Yes (former smoker quit 20yrs ago) - Cardiovascular System Hx Hypertension: Yes (took antihypertensives last night) Hx Heart Attack/AMI: No - Central Nervous System Hx Seizures: No CVA: Yes (5-6yrs ago; no deficits) - Endocrine Hx Renal Disease: No Hx Liver Disease: No Hx Insulin Dependent Diabetes: No Hx Non-Insulin Dependent Diabetes: No Hx Thyroid Disease: No - Other Systems Hx Cancer: Yes (prostate and bladder ca) - Additional Comments Anesthesia Medical History Comments: No hx anesthetic complications.
[2021-09-28] MEDS ORDERED: fentaNYL 100 MCG/2 ML INJ IV PRN (09:24)
--- NOTE | 2021-09-28 09:24 | Anesthesia Day of Surgery ---
Anesthesia Day of Surgery - Day of Surgery Patient Examined: Yes Patient H&P Reviewed: Yes Patient is NPO: Yes Beta Blockers: Yes (carvedilol yesterday PM)
[2021-09-28 10:20] LABS: Hematocrit 31.1 % (35.5-45.6); Hemoglobin 10.6 gm/dl (11.8-15.2); Mean Corpuscular HGB Conc 34 % (32-34); Mean Corpuscular Volume 79 fl (84-94); Platelet Count 288 K/mm3 (140-440); Red Blood Count 3.94 M/mm3 (3.65-5.03); Red Cell Distribution Width 15.3 % (13.2-15.2)
[2021-09-28] MEDS ORDERED: ceFAZolin/STERILE WATER 2 GM/20 ML SYRINGE IV NR (11:00)
[2021-09-28] MEDS ORDERED: propofoL 200 MG/20 ML VIAL IV ONE ×2 (11:05→12:11)
[2021-09-28] MEDS ORDERED: fentaNYL 100 MCG/2 ML INJ ONE (11:05)
[2021-09-28] MEDS ORDERED: ePHEDrine SULFATE 50 MG/1 ML INJ ONE (11:20)
[2021-09-28] MEDS ORDERED: SODIUM CHLORIDE 0.9% IRRIG SOLN 2000 ML IR ONE (12:00)
[2021-09-28] MEDS ORDERED: ZOLPIDEM 5 MG TAB PO PRN (12:30)
[2021-09-28] MEDS ORDERED: ACETAMINOPHEN 325 MG TAB PO PRN (12:30)
--- NOTE | 2021-09-28 12:30 | Post Operative Note ---
Date of procedure: 09/28/21 Pre-op diagnosis: bladder cancer Post-op diagnosis: same Findings: necrotic bt Procedure: cysto turbt fulg Anesthesia: GETA Surgeon: CHRISTIANO PRICE Estimated blood loss: minimal Pathology: list (as above) Specimen disposition: to lab Condition: stable Disposition: PACU
[2021-09-28] MEDS ORDERED: SODIUM CHLORIDE IRRI 1000 ML 1,000 ML IR ONE (12:50)
[2021-09-28] MEDS ORDERED: D5W/0.45% NACL/KCL 20 MEQ 20 MEQ/1,000 ML BAG IV SCH (13:00)
[2021-09-28] MEDS ORDERED: SODIUM CHLORIDE 0.9% IRRIG SOLN 2000 ML IR SCH (13:00)
[2021-09-28] MEDS ORDERED: hydrALAZINE 20 MG/1 ML INJ ONE (14:17)
--- NOTE | 2021-09-28 14:19 | Post Anesthesia Evaluation ---
- Post Anesthesia Evaluation Patient Participated: Yes Airway Patent: Yes Stable Respiratory Function: Yes Nausea/Vomiting: No Temp > 96.8F: Yes Pain Manageable: Yes Adequeate Hydration: Yes Anesthesia Complications: No Other Comments: OK for transfer to floor pending bed availability.
[2021-09-28] MEDS: hydrALAZINE 20 MG/1 ML INJ IV PRN ×2 (14:21→23:54)
[2021-09-28 14:26] LABS: Hematocrit 30.7 % (35.5-45.6); Hemoglobin 10.5 gm/dl (11.8-15.2); Mean Corpuscular HGB Conc 34 % (32-34); Mean Corpuscular Volume 78 fl (84-94); Platelet Count 281 K/mm3 (140-440); Red Blood Count 3.92 M/mm3 (3.65-5.03); Red Cell Distribution Width 15.2 % (13.2-15.2)
--- NOTE | 2021-09-28 14:32 | Consultation ---
History of Present Illness - Reason for Consult Consult date: 09/28/21 Medical Management Requesting physician: CHRISTIANO PRICE - History of Present Illness 86 YO Male with Obesity,HTN, CaP, Bladder Cancer. Consult placed by Dr. Price for medical management. Patient seen and evaluated upon arrival to his room. Patient denies fever, chills, chest pain, palpitation, productive cough, skin rash, recent contact, known exposure to COVID-19. Patient resting comfortably. No reported nursing events. Patient denies uncontrollable pain. Past History Past Medical History: hypertension Past Surgical History: Other (Prostate surgery) Social history: . denies: smoking, alcohol abuse, prescription drug abuse Family history: diabetes, hypertension Medications and Allergies Allergies Allergy/AdvReac Type Severity Reaction Status Date / Time LATANOPROST-EYE DROPS AdvReac Intermediate Itching Uncoded 07/14/21 12:08 Home Medications Medication Instructions Recorded Confirmed Last Taken Type Cosopt Eye Drops 1 drop OD BID 01/18/21 09/28/21 09/27/21 History Durezol 1 drop OD BID 01/18/21 09/28/21 09/27/21 History Hydrochlorothiazide 12.5 mg PO DAILY 01/18/21 09/28/21 09/27/21 History Zioptan 0.0015% Eye Drops 1 drop OD HS 01/18/21 09/28/21 09/27/21 History Zirgan 1 drop OD TID 01/18/21 09/28/21 09/27/21 History Cod Liver Oil 1 tab PO QDAY 07/12/21 09/28/21 09/27/21 History carvediloL [Coreg] 1 tab PO QDAY 07/12/21 09/28/21 09/27/21 20:00 History Relugolix [Orgovyx] 120 mg PO QDAY 09/28/21 09/28/21 09/27/21 History Active Meds: Active Medications Acetaminophen (Acetaminophen 325 Mg Tab) 650 mg PO Q4H PRN PRN Reason: Pain, Mild (1-3)/Fever > 100.5 Cefazolin Sodium (Cefazolin/Sterile Water 2 Gm/20 Ml Syringe) 2 gm IV PREOP NR Stop: 09/28/21 23:59 Fentanyl (Fentanyl 100 Mcg/2 Ml Inj) 50 mcg IV Q5MIN PRN PRN Reason: Pain , Severe (7-10) Stop: 09/28/21 23:59 Hydralazine HCl (Hydralazine 20 Mg/1 Ml Inj) 5 mg IV Q20M PRN PRN Reason: Hypertension Lactated Ringer's (Lactated Ringers) 1,000 mls @ 100 mls/hr IV DIRECT EDGAR Last Admin: 09/28/21 09:43 Dose: 100 mls/hr Potassium Chloride/Dextrose/Sod Cl (D5w/0.45% Nacl/Kcl 20 Meq) 20 meq in 1,000 mls @ 100 mls/hr IV DIRECT EDGAR Cefazolin Sodium (Ancef/Ns 1 Gm/50 Ml) 1 gm in 50 mls @ 100 mls/hr IV Q8H EDGAR; Protocol Stop: 09/29/21 20:29 Oxycodone/Acetaminophen (Oxycodone /Acetaminophen 5-325mg Tab) 2 tab PO Q6H PRN PRN Reason: Pain, Moderate (4-6) Sodium Chloride (Sodium Chloride 0.9% Irrig Soln 2000 Ml) 2,000 ml IR DIRECT EDGAR Zolpidem Tartrate (Zolpidem 5 Mg Tab) 5 mg PO QHS PRN PRN Reason: Sleep Review of Systems Constitutional: no weight loss, no weight gain, no fever, no chills Ears, nose, mouth and throat: no ear pain, no nasal congestion, no nasal discharge Cardiovascular: no chest pain, no palpitations, no rapid/irregular heart beat, no syncope Respiratory: no cough, no cough with sputum, no hemoptysis, no shortness of breath Gastrointestinal: no abdominal pain, no nausea, no vomiting, no constipation Genitourinary Male: no flank pain, no discharge, no urinary frequency, no urinary hesitancy Rectal: no pain, no incontinence, no bleeding Musculoskeletal: no neck stiffness, no neck pain, no shooting arm pain, no arm numbness/tingling Integumentary: no rash, no pruritis, no redness, no wounds, no jaundice Neurological: no head injury, no paralysis, no parathesias, no tingling, no tremors Psychiatric: no anxiety, no hypersomnia, no change in appetite, no change in libido, no hallucinations Endocrine: no polyphagia, no excessive thirst, no polydipsia, no polyuria Hematologic/Lymphatic: no easy bruising, no easy bleeding, no lymphadenopathy Allergic/Immunologic: no anaphylaxis Exam - Constitutional Vitals: Temp Pulse Resp BP Pulse Ox 97.1 F L 54 L 16 176/82 97 09/28/21 12:26 09/28/21 14:15 09/28/21 14:15 09/28/21 14:15 09/28/21 14:15 General appearance: Present: mild distress, obese - EENT Eyes: Present: PERRL ENT: hearing intact, clear oral mucosa - Neck Neck: Present: supple, normal ROM - Respiratory Respiratory effort: normal Respiratory: bilateral: CTA - Cardiovascular Heart Sounds: Present: S1 & S2. Absent: rub, click - Extremities Extremities: pulses symmetrical, No edema Peripheral Pulses: within normal limits - Abdominal General gastrointestinal: Present: soft, non-tender, non-distended, normal bowel sounds Male genitourinary: Present: normal - Integumentary Integumentary: Present: clear, warm, dry - Musculoskeletal Musculoskeletal: gait normal, strength equal bilaterally - Psychiatric Psychiatric: appropriate mood/affect, intact judgment & insight - Neurologic Neurologic: CNII-XII intact, moves all extremities Results - Labs CBC & Chem 7: 09/28/21 13:45 Labs: Abnormal lab results 09/28/21 09/28/21 Range/Units 09:24 13:45 Hgb 10.6 L 10.5 L (11.8-15.2) gm/dl Hct 31.1 L 30.7 L (35.5-45.6) % MCV 79 L 78 L (84-94) fl MCH 27 L 27 L (28-32) pg RDW 15.3 H (13.2-15.2) % Assessment and Plan - Patient Problems (1) HTN (hypertension) Current Visit: Yes Status: Acute Qualifiers: Hypertension type: primary hypertension Qualified Code(s): I10 - Essential (primary) hypertension Plan to address problem: Monitor blood pressure every shift, continue medical management, (2) Bladder cancer Current Visit: No Status: Acute Qualifiers: Bladder location: anterior wall Qualified Code(s): C67.3 - Malignant neoplasm of anterior wall of bladder Plan to address problem: Urology team consulted, continue medical management. Outpatient urology follow- up. (3) Obesity (BMI 30.0-34.9) Current Visit: Yes Status: Acute Plan to address problem: Balanced diet, increase physical activity discharge, outpatient pulmonary follow-up for sleep study. (4) Advance care planning Current Visit: Yes Status: Acute Plan to address problem: Disease education done, care plan discussed, diagnoses discussed, prognosis discussed patient is full code. Patient acknowledges understanding and agreement with care plan +30 minutes. (5) Preventative health care Current Visit: Yes Status: Acute Plan to address problem: Patient counseled regarding balanced diet, increase physical activity at discharge, follow-up with primary care physician for all age and risk factor appropriate screening test.
--- NOTE | 2021-09-28 15:42 | Operative Report ---
DATE OF SURGERY: 09/28/2021 PREOPERATIVE DIAGNOSES: Recurrent gross hematuria, recurrent bladder cancer, poorly compliant on therapy. POSTOPERATIVE DIAGNOSES: Recurrent gross hematuria, recurrent bladder cancer, poorly compliant on therapy. PROCEDURES: Cystoscopy, evacuation of necrotic tissue and some clots, transurethral resection of necrotic tissue with fulguration of bleeding sites. SURGEON: Dr. Shree Sellers. ANESTHESIA: General. FINDINGS: This is a gentleman who is 86 years of age with recurrent bladder cancer. He did great with immunotherapy and then stopped it and now has recurrent disease. He now presents for treatment. We evacuated clots a couple of days ago. His hemoglobin was around 11 now presents for treatment. DESCRIPTION OF PROCEDURE: The patient was brought to the operating room and placed on the operating table. Following induction of anesthesia, placed in lithotomy position, prepped and draped in usual sterile fashion. Cystourethroscopy showed a tumor right lateral lung posterior wall above the right orifice. We resected the necrotic tissue. All bleeding sites were cauterized. The tumor looked more invasive, so we resected what we could and got control of any bleeding. The patient tolerated the procedure well. No significant complication. We did not do a retrograde. The patient was brought to recovery in stable condition. Urine is clear on a Wong drip. TID: [id number] RECEIPT: [id number] IFEOMA/JENNIFER
[2021-09-28] MEDS: ceFAZolin/NS 1 GM/50 ML 1 GM/50 ML BAG IV SCH (21:16)
[2021-09-28] MEDS ORDERED: COSOPT EYE OD SCH (22:00)
[2021-09-28] MEDS: oxyCODONE /ACETAMINOPHEN 5-325MG TAB PO PRN (23:41)
[2021-09-29] MEDS: ceFAZolin/NS 1 GM/50 ML 1 GM/50 ML BAG IV SCH (03:54)
[2021-09-29 07:04] LABS: Basophils % (Auto) 0.2 % (0.0-1.8); Eosinophils % (Auto) 0.2 % (0.0-4.3); Hematocrit 30.7 % (35.5-45.6); Hemoglobin 10.4 gm/dl (11.8-15.2); Lymphocytes # (Auto) 0.8 K/mm3 (1.2-5.4); Mean Corpuscular HGB Conc 34 % (32-34); Mean Corpuscular Volume 79 fl (84-94); Monocytes # (Auto) 0.5 K/mm3 (0.0-0.8); Monocytes % (Auto) 6.3 % (0.0-7.3); Platelet Count 300 K/mm3 (140-440); Red Blood Count 3.89 M/mm3 (3.65-5.03); Red Cell Distribution Width 15.3 % (13.2-15.2)
[2021-09-29 07:10] LABS: Calcium 8.9 mg/dL (8.4-10.2)
[2021-09-29] MEDS ORDERED: carvediloL 12.5 MG TAB PO SCH (10:00)
[2021-09-29] MEDS ORDERED: NON-FORMULARY EACH (Hydrochlorothiazide 12.5 MG) PO SCH (10:00)
[2021-09-29] MEDS ORDERED: hydroCHLOROthiazide 12.5 MG CAP PO SCH (10:00)
--- NOTE | 2021-09-29 10:30 | Progress Note ---
Assessment and Plan Assessment and plan: 86 YO Male with Obesity,HTN, CaP, Bladder Cancer. Consult placed by Dr. Sellers for medical management Hypertension Bladder cancer Obesity 09/29/2021. Blood pressure remained stable. Continue home medications. Anticipate discharge today per urology. History Interval history: No new issues overnight Hospitalist Physical - Constitutional Vitals: Temp Pulse Resp BP Pulse Ox 98.1 F 85 20 149/81 95 09/29/21 04:14 09/29/21 04:14 09/29/21 04:14 09/29/21 04:14 09/29/21 04:14 General appearance: Present: mild distress, obese - EENT Eyes: Present: PERRL, EOM intact ENT: hearing intact, clear oral mucosa, dentition normal - Neck Neck: Present: supple, normal ROM - Respiratory Respiratory effort: normal Respiratory: bilateral: CTA - Cardiovascular Rhythm: regular Heart Sounds: Present: S1 & S2. Absent: gallop, rub - Extremities Extremities: no ischemia, No edema, Full ROM - Abdominal General gastrointestinal: soft, non-tender, non-distended, normal bowel sounds - Integumentary Integumentary: Present: clear, warm, dry - Neurologic Neurologic: CNII-XII intact, moves all extremities Results - Labs CBC & Chem 7: 09/29/21 05:45 09/29/21 05:45 Labs: Laboratory Last Values WBC 8.4 K/mm3 (4.5-11.0) 09/29/21 05:45 RBC 3.89 M/mm3 (3.65-5.03) 09/29/21 05:45 Hgb 10.4 gm/dl (11.8-15.2) L 09/29/21 05:45 Hct 30.7 % (35.5-45.6) L 09/29/21 05:45 MCV 79 fl (84-94) L 09/29/21 05:45 MCH 27 pg (28-32) L 09/29/21 05:45 MCHC 34 % (32-34) 09/29/21 05:45 RDW 15.3 % (13.2-15.2) H 09/29/21 05:45 Plt Count 300 K/mm3 (140-440) 09/29/21 05:45 Lymph % (Auto) 10.0 % (13.4-35.0) L 09/29/21 05:45 [place] % (Auto) 6.3 % (0.0-7.3) 09/29/21 05:45 Eos % (Auto) 0.2 % (0.0-4.3) 09/29/21 05:45 Baso % (Auto) 0.2 % (0.0-1.8) 09/29/21 05:45 Lymph # (Auto) 0.8 K/mm3 (1.2-5.4) L 09/29/21 05:45 [place] # (Auto) 0.5 K/mm3 (0.0-0.8) 09/29/21 05:45 Eos # (Auto) 0.0 K/mm3 (0.0-0.4) 09/29/21 05:45 Baso # (Auto) 0.0 K/mm3 (0.0-0.1) 09/29/21 05:45 Seg Neutrophils % 83.3 % (40.0-70.0) H 09/29/21 05:45 Seg Neutrophils # 7.0 K/mm3 (1.8-7.7) 09/29/21 05:45 Sodium 136 mmol/L (137-145) L 09/29/21 05:45 Potassium 4.3 mmol/L (3.6-5.0) 09/29/21 05:45 Chloride 100.6 mmol/L (98-107) 09/29/21 05:45 Carbon Dioxide 25 mmol/L (22-30) 09/29/21 05:45 Anion Gap 15 mmol/L 09/29/21 05:45 BUN 20 mg/dL (9-20) 09/29/21 05:45 Creatinine 1.4 mg/dL (0.8-1.3) H 09/29/21 05:45 Estimated GFR 58 ml/min 09/29/21 05:45 BUN/Creatinine Ratio 14 % 09/29/21 05:45 Glucose 167 mg/dL (75-100) H 09/29/21 05:45 POC Glucose 148 mg/dL (70-105) H 09/29/21 01:01 Calcium 8.9 mg/dL (8.4-10.2) 09/29/21 05:45 Blood Type A POSITIVE 06/09/22 09:30 Antibody Screen Negative 09/28/21 09:30 Bird/IV: Voiding Method Indwelling Catheter Active Medications - Current Medications Current Medications: Generic Name Dose Route Start Last Admin Trade Name Stalinq PRN Reason Stop Dose Admin Acetaminophen 650 mg 09/28/21 12:30 Acetaminophen 325 Mg Tab PO Q4H PRN Pain, Mild (1-3)/Fever > 100.5 Carvedilol 12.5 mg 09/29/21 10:00 Carvedilol 12.5 Mg Tab PO QDAY EDGAR Hydralazine HCl 5 mg 09/28/21 14:18 09/28/21 23:54 Hydralazine 20 Mg/1 Ml Inj IV 5 mg Q20M PRN Administration Hypertension Hydrochlorothiazide 12.5 mg 09/29/21 10:00 Hydrochlorothiazide 12.5 Mg Cap PO QDAY EDGAR Potassium Chloride/Dextrose/Sod Cl 20 meq in 1,000 mls @ 100 mls/hr 09/28/21 13:00 09/28/21 21:16 D5w/0.45% Nacl/Kcl 20 Meq IV 100 mls/hr DIRECT EDGAR Administration Cefazolin Sodium 1 gm in 50 mls @ 100 mls/hr 09/28/21 20:00 09/29/21 03:54 Ancef/Ns 1 Gm/50 Ml IV 09/29/21 20:29 100 mls/hr Q8H EDGAR Administration Protocol Miscellaneous Medication 1 drop 09/28/21 22:00 Cosopt Eye Drops OD BID EDGAR Oxycodone/Acetaminophen 2 tab 09/28/21 12:30 09/28/21 23:41 Oxycodone /Acetaminophen 5-325mg Tab PO 2 tab Q6H PRN Administration Pain, Moderate (4-6) Sodium Chloride 2,000 ml 09/28/21 13:00 Sodium Chloride 0.9% Irrig Soln 2000 Ml IR DIRECT EDGAR Zolpidem Tartrate 5 mg 09/28/21 12:30 Zolpidem 5 Mg Tab PO QHS PRN Sleep
[2021-09-29] MEDS: oxyCODONE /ACETAMINOPHEN 5-325MG TAB PO PRN (10:54)
--- NOTE | 2021-09-29 11:00 | Short Stay Summary ---
Short Stay Documentation Date of service: 09/28/21 - History H&P: obtained from office Past Medical History: hypertension Past Surgical History: Other (Prostate surgery) Social history: , no smoking, no alcohol abuse, no prescription drug abuse - Allergies and Medications Current Medications: Allergies LATANOPROST-EYE DROPS Adverse Reaction (Intermediate, Uncoded 07/14/21 12:08) Itching Home Medications Medication Instructions Recorded Confirmed Last Taken Type Cosopt Eye Drops 1 drop OD BID 01/18/21 09/28/21 09/27/21 History Durezol 1 drop OD BID 01/18/21 09/28/21 09/27/21 History Hydrochlorothiazide 12.5 mg PO DAILY 01/18/21 09/28/21 09/27/21 History Zioptan 0.0015% Eye Drops 1 drop OD HS 01/18/21 09/28/21 09/27/21 History Zirgan 1 drop OD TID 01/18/21 09/28/21 09/27/21 History Cod Liver Oil 1 tab PO QDAY 07/12/21 09/28/21 09/27/21 History carvediloL [Coreg] 1 tab PO QDAY 07/12/21 09/28/21 09/27/21 20:00 History Relugolix [Orgovyx] 120 mg PO QDAY 09/28/21 09/28/21 09/27/21 History Active Medications Acetaminophen (Acetaminophen 325 Mg Tab) 650 mg PO Q4H PRN PRN Reason: Pain, Mild (1-3)/Fever > 100.5 Carvedilol (Carvedilol 12.5 Mg Tab) 12.5 mg PO QDAY EDGAR Hydralazine HCl (Hydralazine 20 Mg/1 Ml Inj) 5 mg IV Q20M PRN PRN Reason: Hypertension Last Admin: 09/28/21 23:54 Dose: 5 mg Hydrochlorothiazide (Hydrochlorothiazide 12.5 Mg Cap) 12.5 mg PO QDAY EDGAR Potassium Chloride/Dextrose/Sod Cl (D5w/0.45% Nacl/Kcl 20 Meq) 20 meq in 1,000 mls @ 100 mls/hr IV DIRECT EDGAR Last Admin: 09/28/21 21:16 Dose: 100 mls/hr Cefazolin Sodium (Ancef/Ns 1 Gm/50 Ml) 1 gm in 50 mls @ 100 mls/hr IV Q8H EDGAR; Protocol Stop: 09/29/21 20:29 Last Admin: 09/29/21 03:54 Dose: 100 mls/hr Miscellaneous Medication (Cosopt Eye Drops) 1 drop OD BID EDGAR Oxycodone/Acetaminophen (Oxycodone /Acetaminophen 5-325mg Tab) 2 tab PO Q6H PRN PRN Reason: Pain, Moderate (4-6) Last Admin: 09/28/21 23:41 Dose: 2 tab Sodium Chloride (Sodium Chloride 0.9% Irrig Soln 2000 Ml) 2,000 ml IR DIRECT EDGAR Zolpidem Tartrate (Zolpidem 5 Mg Tab) 5 mg PO QHS PRN PRN Reason: Sleep - Physical exam Extremities: no ischemia, No edema, Full ROM - Brief post op/procedure progress note Date of procedure: 09/28/21 Pre-op diagnosis: BLADDER TUMOR Post-op diagnosis: same Procedure: TURBT Anesthesia: GETA Surgeon: CHRISTIANO PRICE Specimen disposition: to lab Condition: stable - Hospital course Hospital course: PT HAS SCRIPTS, APPT DR. Davey NEXT WEEK AT BEDSIDE LOOKS GOOD - Disposition Condition at discharge: Stable Disposition: 01 HOME / SELF CARE / HOMELESS Short Stay Discharge Plan Follow up with: DR SERGIO [Other] - 7 Days
[2021-09-29 11:45] VITALS: BP 158/66
== END 2021-09-29 12:28 | disposition home or self-care (01) ==
LOC: OR 08:01 → 4A 12:30 → 3A 16:47
PROVIDERS: ADMIT Urology; ATTEND Urology
DX: C67.3 Malignant neoplasm of anterior wall of bladder (principal); C61 Malignant neoplasm of prostate; C67.4 Malignant neoplasm of posterior wall of bladder; R31.0 Gross hematuria; I10 Essential (primary) hypertension; J18.9 Pneumonia, unspecified organism; E66.9 Obesity, unspecified; Z79.899 Other long term (current) drug therapy; Z98.890 Other specified postprocedural states; Z68.34 Body mass index [BMI] 34.0-34.9, adult
CPT/HCPCS: 36415; 52235; 80048; 82962; 85025; 85027; 86850; 86900; 86901; 88305; 88341; 88342; 96365; 96366; 96375; G0378; J0360; J0690; J2704; J3010; J3480; J3490; J7120